=== PATIENT | female | born 1990 | race Caucasian/White ===

== ENCOUNTER → 2019-12-14 08:49 | Outpatient (CLI) | payer OTHER, SELFPAY | PROVIDERS: Referring Provider Internal Medicine; Visit Provider Internal Medicine | DX: Z23 Encounter for immunization (principal) | CPT/HCPCS: 90471; 90686 ==

== ENCOUNTER → 2020-03-17 08:28 | Outpatient (CLI) | payer OTHER, SELFPAY ==
[2020-03-17 08:59] LABS: Add Manual Diff / Slide Review NO; Basophils Absolute Auto 0 /uL (0-100); Eosinophils Absolute Auto 100 /uL (0-450); Eosinophils Percent Auto 2.2 % (2-4); Hematocrit 42.9 % (36-46); Hemoglobin 13.8 g/dL (12.0-16.0); Lymphocytes Absolute Auto 1000 /uL (1100-4500); Lymphocytes Percent Auto 30.5 % (25-40); Mean Corpuscular HGB Conc 32.3 % (30-36); Mean Corpuscular Hemoglobin 29.4 PG (26-34); Mean Corpuscular Volume 91.2 fL (80-100); Monocytes Absolute Auto 300 /uL (0-900); Monocytes Percent Auto 9.2 % (3-14); Neutrophils Absolute Auto 1900 /uL (1500-7000); Neutrophils Percent Auto 57.1 % (50-75); Platelet Count 177 X10^3/uL (150-400); Red Cell Distribution Width 13.6 % (11.6-14.8); White Blood Cell Count 3.2 X10^3/uL (4.5-11.0)
[2020-03-17 09:17] LABS: Alanine Aminotransferase 15 IU/L (<35); Albumin 4.6 g/dL (3.5-5.0); Albumin Globulin Ratio 1.5 (1.0-2.8); Alkaline Phosphatase 46 U/L (38-126); Aspartate Aminotransferase 27 IU/L (14-36); BUN Creatinine Ratio 21.3 (6-22); Bilirubin Total 0.6 mg/dL (0.2-1.3); Blood Urea Nitrogen 13 mg/dL (7-17); Calcium 9.2 mg/dL (8.4-10.2); Carbon Dioxide 29 mmol/L (22-32); Chloride 105 mmol/L (98-107); Cholesterol 190 mg/dL (140-199); Estimated Glomerular Filt Rate > 60.0 mL/min (>60); Globulin 3.1 g/dL (1.7-4.1); Glucose 94 mg/dL (70-100); HDL Cholesterol 87 mg/dL (40-60); HEMOLYSIS < 15 (0-50); LDL Cholesterol Calculated 94 mg/dL (<100); Potassium 3.8 mmol/L (3.4-5.1); Sodium 138 mmol/L (137-145); Total Protein 7.7 g/dL (6.3-8.2); Triglycerides 46 mg/dL (35-150)
[2020-03-17 09:47] LABS: TSH w/ Reflex to FT4 1.68 uIU/mL (0.47-4.68)
[2020-03-17 10:00] LABS: Prolactin 20.2 ng/mL (3.0-18.6)
[2020-03-23 15:59] LABS: Testosterone 59.4 ng/dL (5.71-77.0)
== END ==
PROVIDERS: PCP Registered Nurse; Referring Provider Registered Nurse; Visit Provider Specialist
DX: L65.9 Nonscarring hair loss, unspecified (principal); L68.0 Hirsutism; N92.6 Irregular menstruation, unspecified; Z82.49 Family history of ischemic heart disease and other diseases of the circulatory system; R53.83 Other fatigue
CPT/HCPCS: 36415; 80053; 80061; 82627; 84146; 84403; 84443; 85025

== ENCOUNTER → 2020-12-11 09:14 | Outpatient (CLI) | payer OTHER, SELFPAY | PROVIDERS: PCP Registered Nurse; Referring Provider Internal Medicine; Visit Provider Internal Medicine | DX: Z23 Encounter for immunization (principal) | CPT/HCPCS: 90471; 90686 ==

== ENCOUNTER → 2021-05-01 12:15 | Outpatient (CLI) | payer OTHER, SELFPAY ==
[2021-05-01 13:20] LABS: COVID19 -Nasal RAPID Negative (Negative)
== END ==
PROVIDERS: PCP Registered Nurse; Visit Provider Nurse Practitioner Family
DX: Z20.822 Contact with and (suspected) exposure to COVID-19 (principal)
CPT/HCPCS: 87635

== ENCOUNTER → 2021-12-20 18:40 | Outpatient (CLI) | payer OTHER, SELFPAY | PROVIDERS: PCP Registered Nurse; Referring Provider Internal Medicine; Visit Provider Internal Medicine | DX: Z23 Encounter for immunization (principal) | CPT/HCPCS: 90471; 90686 ==

== ENCOUNTER → 2022-07-12 10:11 | Outpatient (CLI) | payer OTHER, SELFPAY ==
[2022-07-12 11:33] LABS: Alanine Aminotransferase 20 IU/L (<35); Albumin 4.8 g/dL (3.5-5.0); Albumin Globulin Ratio 1.5 (1.0-2.8); Alkaline Phosphatase 49 U/L (38-126); Aspartate Aminotransferase 29 IU/L (14-36); BUN Creatinine Ratio 12.3 (6-22); Bilirubin Total 0.5 mg/dL (0.2-1.3); Blood Urea Nitrogen 9 mg/dL (7-17); Calcium 9.3 mg/dL (8.4-10.2); Carbon Dioxide 27 mmol/L (22-32); Chloride 103 mmol/L (98-107); Cholesterol 188 mg/dL (140-199); Estimated Glomerular Filt Rate > 60 mL/min (>60); Globulin 3.1 g/dL (1.7-4.1); Glucose 85 mg/dL (70-100); HDL Cholesterol 79 mg/dL (40-60); HEMOLYSIS < 15 (0-50); LDL Cholesterol Calculated 99 mg/dL (<100); Potassium 3.9 mmol/L (3.4-5.1); Sodium 137 mmol/L (137-145); Total Protein 7.9 g/dL (6.3-8.2); Triglycerides 48 mg/dL (35-150)
[2022-07-12 11:36] LABS: High Sensitivity CRP - Cardiac < 0.3 mg/L (1.0-3.0)
[2022-07-12 11:42] LABS: Add Manual Diff / Slide Review NO; Basophils Absolute Auto 0 /uL (0-100); Basophils Percent Auto 0.3 % (0-2); Eosinophils Absolute Auto 0 /uL (0-450); Eosinophils Percent Auto 0.8 % (2-4); Hematocrit 42.6 % (36-46); Hemoglobin 14.2 g/dL (12.0-16.0); Lymphocytes Absolute Auto 1300 /uL (1100-4500); Lymphocytes Percent Auto 27.5 % (25-40); Mean Corpuscular HGB Conc 33.3 % (30-36); Mean Corpuscular Hemoglobin 29.6 PG (26-34); Mean Corpuscular Volume 88.9 fL (80-100); Monocytes Absolute Auto 300 /uL (0-900); Monocytes Percent Auto 7.5 % (3-14); Neutrophils Absolute Auto 2900 /uL (1500-7000); Neutrophils Percent Auto 63.9 % (50-75); Platelet Count 215 X10^3/uL (150-400); Red Blood Cell Count 4.79 X10^6/uL (4.0-5.2); Red Cell Distribution Width 13.7 % (11.6-14.8); White Blood Cell Count 4.5 X10^3/uL (4.5-11.0)
[2022-07-12 11:50] LABS: Prolactin 15.1 ng/mL (3.0-18.6); Vitamin D 25 Hydroxy (D3) 23.3 ng/mL (30.0-100.0)
[2022-07-12 11:54] LABS: Free T3, Triiodothyronine Free 5.08 pg/mL (2.77-5.27)
[2022-07-12 12:08] LABS: TSH w/ Reflex to FT4 1.26 uIU/mL (0.47-4.68)
[2022-07-12 12:22] LABS: Vitamin B12 491 pg/mL (239-931)
[2022-07-19 07:19] LABS: Percent Free Testosterone 1.42 % (0.50-2.80); Testosterone Free 1.57 ng/dL (0.10-0.85); Testosterone Total 110.5 ng/dL (10.0-55.0)
== END ==
PROVIDERS: PCP Family Medicine; Referring Provider Family Medicine; Visit Provider Family Medicine
DX: E78.5 Hyperlipidemia, unspecified (principal); E53.8 Deficiency of other specified B group vitamins; E28.2 Polycystic ovarian syndrome; D72.819 Decreased white blood cell count, unspecified; R53.83 Other fatigue; R63.5 Abnormal weight gain; E55.9 Vitamin D deficiency, unspecified
CPT/HCPCS: 36415; 80053; 80061; 82306; 82607; 84146; 84402; 84403; 84443; 84481; 85025; 86140

== ENCOUNTER → 2022-08-16 08:50 | Outpatient (CLI) | payer OTHER, SELFPAY | PROVIDERS: PCP Family Medicine; Visit Provider Family Medicine | DX: N89.8 Other specified noninflammatory disorders of vagina (principal) | CPT/HCPCS: 87210 ==

== ENCOUNTER → 2022-12-23 15:34 | Outpatient (CLI) | payer OTHER, SELFPAY | PROVIDERS: PCP Family Medicine; Referring Provider Family Medicine; Visit Provider Family Medicine | DX: Z23 Encounter for immunization (principal) | CPT/HCPCS: 90471; 90686 ==

== ENCOUNTER → 2023-01-17 09:57 | Outpatient (CLI) | payer OTHER, SELFPAY ==
[2023-01-17 11:32] LABS: BUN Creatinine Ratio 22.4 (6-22); Blood Urea Nitrogen 15 mg/dL (7-17); Calcium 9.7 mg/dL (8.4-10.2); Carbon Dioxide 26 mmol/L (22-32); Chloride 103 mmol/L (98-107); Estimated Glomerular Filt Rate > 60 mL/min (>60); Glucose 77 mg/dL (70-100); HEMOLYSIS < 15 (0-50); Potassium 4.2 mmol/L (3.4-5.1); Sodium 137 mmol/L (137-145)
[2023-01-17 11:48] LABS: Vitamin D 25 Hydroxy (D3) 47.6 ng/mL (30.0-100.0)
[2023-01-25 13:36] LABS: Percent Free Testosterone 2.06 % (0.50-2.80); Testosterone Free 1.39 ng/dL (0.10-0.85); Testosterone Total 67.6 ng/dL (10.0-55.0)
== END ==
PROVIDERS: PCP Family Medicine; Referring Provider Family Medicine; Visit Provider Family Medicine
DX: R63.5 Abnormal weight gain (principal); N92.6 Irregular menstruation, unspecified; L68.0 Hirsutism
CPT/HCPCS: 36415; 80048; 82306; 84402; 84403

== ENCOUNTER 2023-01-21 20:21 | Emergency (ER) | payer OTHER, SELFPAY ==
[2023-01-21 20:25] VITALS: BP 131/63; PULSE 80; RESP 16; TEMP 37.1; O2SAT 100; BMI 25.0
--- NOTE | 2023-01-21 20:32 | DI.RAD.S_ITS ---
PROCEDURE: XR FOOT LT 2V INDICATIONS: fall off of balance beam TECHNIQUE: 3 views of the foot were acquired. COMPARISON: None. FINDINGS: Bones: No displaced fracture or dislocation identified. Incidentally noted nonaggressive appearing sclerosis at the 1st distal phalanx. Soft tissues: No suspicious calcifications. IMPRESSION: No acute radiographic abnormality. If there is high concern for occult injury, consider repeat radiography or cross-sectional imaging. Dictated by: Joshua Dunn M.D. on 01/21/2023 at 21:00 Approved by: Joshua Dunn M.D. on 01/21/2023 at 21:02
--- NOTE | 2023-01-21 20:32 | DI.RAD.S_ITS ---
PROCEDURE: XR ANKLE LT MIN 3V INDICATIONS: fall off of balance beam TECHNIQUE: 3 views of the ankle were acquired. COMPARISON: None. FINDINGS: Bones: The ankle mortise appears intact. No displaced fracture. Soft tissues: No suspicious calcifications. IMPRESSION: No acute radiographic abnormality. If there is high concern for occult injury, consider repeat radiography or cross-sectional imaging. Dictated by: Joshua Dunn M.D. on 01/21/2023 at 21:04 Approved by: Joshua Dunn M.D. on 01/21/2023 at 21:05
--- NOTE | 2023-01-21 21:09 | ED.LOWEXIN ---
HPI - Extremity Injury (Lower) General Chief Complaint: Extremity Injury, Lower Stated Complaint: hurt left foot Time Seen by Provider: 01/21/23 20:24 Source: patient Mode of arrival: Wheelchair History of Present Illness HPI Narrative: 32-year-old female presents for foot pain that occurred approximately 1 hour prior to arrival. Patient fell off of the balance beam and landed on her foot. She reports hearing a pop and noticed swelling in her foot. Related Data Previous Rx's Medication Instructions Recorded fluconazole 150 mg tablet 150 mg PO Q3D 2 doses #2 tabs 09/06/22 (Diflucan) Allergies Allergy/AdvReac Type Severity Reaction Status Date / Time No Known Drug Allergies Allergy Verified 09/25/22 15:41 Review of Systems Review of Systems Narrative: Negative except as noted above Patient History Medical History (Updated 01/21/23 @ 21:10 by Kirsty Walton MD) Migraine headache without aura Family history of heart disease Irregular menses Hair loss Female hirsutism Social History Smoking Status: Never smoker alcohol intake: current (2-3 drinks twice monthly ) substance use type: does not use Smoking Status: Never smoker Substance Use Type: does not use Exam Initial Vital Signs Initial Vital Signs: Vital Signs Temperature 98.8 F 01/21/23 20:25 Pulse Rate 80 01/21/23 20:25 Respiratory Rate 16 01/21/23 20:25 Blood Pressure 131/63 01/21/23 20:25 Pulse Oximetry 100 01/21/23 20:25 Oxygen Delivery Method Room Air 01/21/23 20:25 Const: Awake, alert, no acute distress, nontoxic appearing MSK: No deformity, tenderness over lateral base of L foot, no crepitus, sensation intact, palpable DP pulse Skin: Warm, Dry, intact, no rashes Neuro: AO x3, CN II-XII grossly intact, moves all extremities Course Orders Ordered: ED Orders 01/21/23 20:32 XR ankle LT min 3V Stat XR foot LT 2V Stat Vital Signs Vital signs: Vital Signs - 8 hr 01/21/23 20:25 01/21/23 21:16 Temperature 98.8 F 98.4 F Pulse Rate 80 Respiratory Rate 16 18 Blood Pressure 131/63 136/81 Pulse Oximetry 100 96 Oxygen Delivery Method Room Air Room Air MDM - Extremity Injury (Lower) Differential Diagnosis Differential diagnosis: Likely ankle sprain and strain and other (foot sprain, foot fracture) MDM Narrative Medical decision making narrative: Foot pain after falling from balance beam. X-rays negative for acute findings, likely sprain. Placed an Jamie wrap bandage, RICE counseled at bedside. Discharge Plan Departure Patient Disposition: Home Clinical Impression: Foot sprain Qualifiers: Encounter type: initial encounter Laterality: left Qualified Code(s): S93.602A - Unspecified sprain of left foot, initial encounter Instructions: DI for Foot Sprain Prescriptions: No Action fluconazole [Diflucan] 150 mg tablet 150 mg PO Q3D Qty: 2 0RF Rx Instructions: Only take the second dose if vaginitis symptoms persist after the first dose. Referrals: Gissell Christine DO [Primary Care Provider] - Stand Alone Forms: Patient Portal/API
[2023-01-21 21:16] VITALS: BP 136/81; RESP 18; TEMP 36.9; O2SAT 96
== END 2023-01-21 21:20 | disposition home or self-care (01) ==
PROVIDERS: Emergency Provider Emergency Medicine; PCP Family Medicine
DX: S93.602A Unspecified sprain of left foot, initial encounter (principal); W17.89XA Other fall from one level to another, initial encounter; Y93.43 Activity, gymnastics
CPT/HCPCS: 73610; 73620; 99283

== ENCOUNTER → 2023-12-11 13:04 | Outpatient (CLI) | payer OTHER, SELFPAY | PROVIDERS: PCP Family Medicine; Referring Provider Internal Medicine; Visit Provider Internal Medicine | DX: Z23 Encounter for immunization (principal) | CPT/HCPCS: 90471; 90656 ==

== ENCOUNTER → 2024-08-11 08:15 | Outpatient (CLI) | payer OTHER, SELFPAY ==
[2024-08-11 09:14] LABS: Hematocrit 40.3 % (36-46); Hemoglobin 13.5 g/dL (12.0-16.0); Mean Corpuscular HGB Conc 33.6 % (30-36); Mean Corpuscular Hemoglobin 30.5 PG (26-34); Mean Corpuscular Volume 90.8 fL (80-100); Platelet Count 182 X10^3/uL (150-400); Red Blood Cell Count 4.43 X10^6/uL (4.0-5.2); Red Cell Distribution Width 13.6 % (11.6-14.8); White Blood Cell Count 4.2 X10^3/uL (4.5-11.0)
[2024-08-11 09:24] LABS: Alanine Aminotransferase 15 IU/L (<35); Albumin 4.9 g/dL (3.5-5.0); Alkaline Phosphatase 49 U/L (38-126); Aspartate Aminotransferase 26 IU/L (14-36); BUN Creatinine Ratio 17.1 (6-22); Bilirubin Total 0.5 mg/dL (0.2-1.3); Blood Urea Nitrogen 12 mg/dL (7-17); Calcium 9.6 mg/dL (8.4-10.2); Carbon Dioxide 26 mmol/L (22-32); Chloride 104 mmol/L (98-107); Cholesterol 178 mg/dL (140-199); Estimated Glomerular Filt Rate > 60 mL/min (>60); Globulin 2.5 g/dL (1.7-4.1); Glucose 83 mg/dL (70-99); HDL Cholesterol 76 mg/dL (40-60); HEMOLYSIS < 15 (0-50); LDL Cholesterol Calculated 93 mg/dL (<100); Potassium 4.3 mmol/L (3.4-5.1); Sodium 136 mmol/L (137-145); Total Protein 7.4 g/dL (6.3-8.2); Triglycerides 43 mg/dL (35-150)
[2024-08-11 09:25] LABS: Hemoglobin A1C% w Est Avg Glu 4.6 % (4.0-6.0)
[2024-08-11 09:38] LABS: Prolactin 10.5 ng/mL (3.0-18.6)
[2024-08-11 09:56] LABS: Ferritin 16 ng/mL (6-137)
[2024-08-11 09:57] LABS: TSH w/ Reflex to FT4 1.48 uIU/mL (0.47-4.68)
[2024-08-11 10:12] LABS: Follicle Stimulating Hormone 3.03 mIU/mL; Luteinizing Hormone 4.91 mIU/mL
[2024-08-11 10:27] LABS: Estradiol, Total 32.5 pg/mL
[2024-08-12 04:41] LABS: CRP, High Sensitivity 0.81 mg/L (0.00-3.00)
[2024-08-13 05:36] LABS: Insulin Level Total 2.9 uIU/mL (2.6-24.9)
[2024-08-16 12:36] LABS: Anti Mullerian Hormone 16.5 ng/mL (.)
== END ==
PROVIDERS: PCP Family Medicine; Referring Provider Family Medicine; Visit Provider Family Medicine
DX: Z00.00 Encounter for general adult medical examination without abnormal findings (principal); Z31.41 Encounter for fertility testing; E28.2 Polycystic ovarian syndrome; N97.9 Female infertility, unspecified
CPT/HCPCS: 36415; 80053; 80061; 82397; 82627; 82670; 82728; 83001; 83002; 83036; 83525; 84146; 84443; 85027; 86140